=== PATIENT | male | born 1935 | race Caucasian/White ===

== ENCOUNTER 2024-11-18 10:57 | Emergency (ER) | payer OTHER, SELFPAY ==
[2024-11-18] VITALS (7 sets, daily range): BP systolic 105–139; BP diastolic 46–85
--- NOTE | 2024-11-18 11:47 | ED.GENMED ---
History of Present Illness
General
Chief Complaint: Fall
Source: patient and family
Time Seen by Provider: 11/18/24 11:31
History of Present Illness
History of Present Illness:
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
he had an accidental trip and fall onto a concrete surface yesterday afternoon resulting in continuous left hip pain that is gradually worsened to the point where patient notes he is having significant difficulty ambulating. Patient does take
Eliquis due to his history of DVT/PE and reports that while he is compliant with this he decided to skip yesterday evening and this morning. Patient denies any headache, LOC, vomiting or visual changes. His only concern right now is moderate
lateral left hip pain that worsens with any attempted movement.
Past History
Past History
ED Past Medical History: Asthma, CAD, COPD, HTN, Hypercholesterolemia, Other (Sleep apnea) and Other (DVT/PE)
ED Past Surgical History: Cardiac, Cholecystectomy, Orthopedic, Tonsilectomy and Urological
Social History
Tobacco: Non-smoker
Alcohol: None
Drug: None
Personal:
Living: with family
Employment: Retired
Review of Systems
Review of Systems
All Other Systems: ROS reviewed and negative except as documented in HPI and ROS
Phy Exam
Physical Exam
Physical Exam:
GENERAL: Alert , in no apparent distress
HEAD: NCAT
EYE: clear conjunctiva
NECK: Supple, no midline ttp
ENT: o/p clr, mmm.
CARDIAC: Regular rate and rhythm .
LUNGS: Clear breath sounds bilaterally, no acute respiratory distress, no wheezes/rales/rhonchi
ABDOMEN: Soft, without focal tenderness, no r/g, no cvat
NEUROLOGICAL: Alert and oriented
SKIN: Warm and dry, skin intact.
MUSCULOSKELETAL: LLE: no obvious deformity/malrotation. Pain with attempted ROM at the left hip/pelvis. No pain with palpation over mid-distal femur/knee/ankle/foot, NVI. Warm and well perfused
PSYCH: Normal and appropriate interaction.
Scores
Heart Failure Risk
Heart Failure Risk Score: Not Applicable
Heart Score for Chest Pain Patients
STEMI patient?: Not applicable
Withdrawal Assessment of Alcohol
Withdrawal Assessment Completed?: Not applicable
Course
Orders/Labs/Results
Orders:
Orders
11/18/24 11:09
Hip, Left 2-3 Views [CR Hip - LT w/wo Pel 2-3 Vw*] Urgent
Comment:
Reason For Exam: pain
Include a pelvis x-ray?: Yes
11/18/24 11:31
CT Cervical Spine W/o Iv Contr Urgent
Comment:
Reason For Exam: fall, eliquis
CT Head W/o Iv Contrast Urgent
Comment:
Reason For Exam: fall, eluiqus
11/18/24 12:32
Basic Metabolic Panel Urgent
Complete Blood Count/With Diff Urgent
PTT Urgent
Prothrombin Time Urgent
11/18/24 13:12
Piperacillin/Tazo 3.375 Gram [Zosyn] 3.375 gram in 50 ml IV NOW
11/18/24 13:[address] Pelvis W/o Iv Contrast Urgent
Comment:
Reason For Exam: concern for left hip/prox femur fracture
Abnormal Lab Results
11/18/24
12:32
MCH 26.5 L pg
(27.0-31.0)
MCHC 31.9 L g/dL
(33.0-37.0)
RDW 16.5 H %
(11.5-14.5)
Absolute Monos (auto) 0.7 H 10^3/uL
(0.1-0.6)
Monocytes % 9.9 H %
(1.7-9.3)
PT 16.5 H Sec
(11.4-14.6)
APTT 42.4 H Sec
(23.4-35.0)
BUN 21 H mg/dl
(9-20)
Creatinine 1.4 H mg/dL
(0.7-1.3)
11/18/24 12:32
11/18/24 12:32
Vital Signs
Initial and Last Documented VS:
Initial Vital Signs
Temp Pulse Resp BP Pulse Ox
98.6 F 84 16 122/66 98
11/18/24 11:07 11/18/24 11:07 11/18/24 11:07 11/18/24 11:07 11/18/24 11:07
Last Documented Vital Signs
Temp Pulse Resp BP Pulse Ox
98.6 F 84 16 139/79 97
11/18/24 11:07 11/18/24 11:07 11/18/24 11:07 11/18/24 17:19 11/18/24 17:30
MDM/Problems Addressed
Differential Diagnosis Includes:
Hip/femur fracture, pelvic fracture, contusion, traumatic bursitis, intracranial bleeding, concussion
MDM/Problems Addressed:
89-year-old male presenting the ER for evaluation after a slip and fall yesterday afternoon, worsening pain throughout the day and evening and into this morning with inability to ambulate secondary to the pain. Patient is hemodynamically stable and
in no acute distress. He states he took an dose of oxycodone around 4 AM and is declining anything further for pain. X-ray of the left hip ordered. Will also order CT of the head and cervical spine due to patient's anticoagulated status and risk
for distracting injury. Labs ordered. Disposition pending.
Chronic conditions affecting care: Arrhythmia
*Radiology
Radiology exam reviewed: preliminary read by ED provider and radiology read reviewed
*Pulse Oximetry
Patient hypoxic: no
*Critical Care Note
Total Time (30-74mins, 75-104mins- exclusive of procedures): Not Applicable
Patient Management
Escalation/DeEscalation of care consider admission/obs:
Patient's x-ray without evidence for acute fracture as read by radiology. CT of the head and cervical spine also without any acute pathologies. Given the patient's pain with ambulating as well as movement I did order a CT scan of the hip/pelvis to
further evaluate for possibility of being missed on x-ray. Patient and family updated on treatment plan and are in agreement with this. Patient continues to decline anything for pain.
Patient CT scan without evidence for fracture. Continues to decline admit/PT/OT or want for SNF/Rehab. Family feels comfortable taking patient home. Aware of return precautions
ED Attending Note
-
Portions of this chart may have been created with voice recognition software.� Occasional wrong word or��sound alike� substitutions may have occurred due to the inherent limitations of voice recognition software.
Discharge Plan
Departure
Patient Disposition: Home (Routine Discharge)
Date of Disposition: 11/18/24
Time of Disposition: 17:27
Patient with high blood pressure during this ER visit?: No
Discharge Problem:
Hip pain
Instructions: Preventing falls in adults, Musculoskeletal Pain
Prescriptions:
New
oxycodone 5 mg tablet
5 mg PO BID PRN (Reason: Pain) Qty: 10 0RF
docusate sodium [Colace] 100 mg capsule
100 mg PO BID Qty: 15 0RF
No Action
losartan 25 MG tablet
50 mg PO BID
tiotropium bromide [Spiriva Respimat] 1 PUFF mist
2 puff inhalation DAILY
carvedilol 6.25 MG tablet
6.25 mg PO BID
furosemide 40 MG tablet
20 - 40 mg PO PRN PRN (Reason: swelling)
Patient Comments:
months ago pre patient.
rosuvastatin 20 MG tablet
20 mg PO QPM
mometasone-formoterol [Dulera] 1 PUFF HFA aerosol inhaler
1 puff inhalation BID
polyethylene glycol 3350 17 GRAMS powder in packet
17 grams PO DAILYPRN PRN (Reason: constipation) Qty: 1 0RF
Patient Comments:
pt states he took months ago
acetaminophen [Tylenol Extra Strength] 500 MG tablet
1,000 mg PO Q6HPRN PRN (Reason: mild pain) Qty: 1 0RF
omeprazole 40 MG capsule,delayed release(DR/EC)
40 mg PO DAILY
albuterol sulfate 18 GM HFA aerosol inhaler
2 puff IH PRN PRN (Reason: sob)
Patient Comments:
pt states he used it months ago
cholecalciferol (vitamin D3) 2,000 UNITS tablet
2,000 units PO Q48H
Eliquis 2.5 MG tablet
2.5 mg PO BID Qty: 0 0RF
oxycodone 5 MG tablet
5 mg PO Q4HPRN PRN (Reason: breakthrough/severe pain) Qty: 10 0RF
lansoprazole 30 MG tablet,disintegrat, delay rel
30 mg PO DAILY Qty: 30 0RF
amlodipine-valsartan 5-160 mg Tablet
1 tab PO DAILY
Referrals:
Suleiman Reilly DO [Family Provider] -
Interventions
Interventions:
*Risk Screen - Suicide Last Done: 11/18/24 11:07
*General Assessment Last Done: 11/18/24 17:45
*Neglect/Abuse Screening Last Done: 11/18/24 11:07
ED- Fall Risk Assessment Last Done: 11/18/24 11:40
*ED COVID-19 Vaccine History Last Done: 11/18/24 11:39
*Nursing Disposition Last Done: 11/18/24 17:45
ED-Musculoskeletal Assessment Last Done: 11/18/24 11:40
ED- Neurological Assessment Last Done: 11/18/24 11:40
ED-Skin Assessment Last Done: 11/18/24 12:35
Discharge Date and Time
Discharge Date/Time: 11/18/24 17:45
Print Language: [place]
[2024-11-18 12:41] LABS: % Basophils 0.4 % (0-2); % Eosinophils 1.5 % (0-6); % Immature Granulocytes 0.4 % (0-0.5); % Lymphocytes 24.1 % (20.5-51.1); % Monocytes 9.9 % (1.7-9.3); % Neutrophils 63.7 % (42.2-75.2); Absolute Eosinophils 0.1 10^3/uL (0-0.7); Absolute Lymphocytes 1.6 10^3/uL (1.2-3.4); Absolute Monocytes 0.7 10^3/uL (0.1-0.6); Absolute Neutrophils 4.3 10^3/uL (1.4-6.5); Hemoglobin 13.4 g/dL (13.0-18.0); Mean Corp Hgb Conc. 31.9 g/dL (33.0-37.0); Mean Corpuscular Hgb 26.5 pg (27.0-31.0); Mean Corpuscular Volume 83.2 fL (80.0-94.0); Mean Platelet Volume 9.3 fL (7.4-10.4); Nucleated Red Blood Cells % 0 % (-); Platelet Count 216 10^3/uL (130-400); Red Blood Cell Count 5.05 10^6/uL (4.70-6.10); Red Cell Dist. Width 16.5 % (11.5-14.5); White Blood Cell Count 6.7 10^3/uL (4.8-10.8)
[2024-11-18 12:49] LABS: INR 1.31; PT 16.5 Sec (11.4-14.6)
[2024-11-18 12:50] LABS: APTT 42.4 Sec (23.4-35.0)
[2024-11-18 13:03] LABS: Blood Urea Nitrogen 21 mg/dl (9-20); Carbon Dioxide 26 mmol/L (22-30); Chloride 105 mmol/L (98-107); Glucose 98 mg/dl (70-99); Potassium 4.2 mmol/L (3.5-5.1); Sodium 138 mmol/L (135-145); eGFR 48.04
[2024-11-18] MEDS: ZOSYN 50 IV (13:33)
== END 2024-11-18 17:45 | disposition home or self-care (01) ==
LOC: EMR 10:57
PROVIDERS: Physician Assistant Medical; EMERGENCY PHYSICIAN Emergency Medicine; FAMILY PHYSICIAN Family Medicine Sports Medicine
DX: M25.552 Pain in left hip (principal); R26.2 Difficulty in walking, not elsewhere classified; W01.0XXA Fall on same level from slipping, tripping and stumbling without subsequent striking against object, initial encounter; J44.89 Other specified chronic obstructive pulmonary disease; I12.9 Hypertensive chronic kidney disease with stage 1 through stage 4 chronic kidney disease, or unspecified chronic kidney disease; N18.30 Chronic kidney disease, stage 3 unspecified; I25.10 Atherosclerotic heart disease of native coronary artery without angina pectoris; E78.00 Pure hypercholesterolemia, unspecified; G47.30 Sleep apnea, unspecified; I25.2 Old myocardial infarction; Z86.718 Personal history of other venous thrombosis and embolism; Z86.711 Personal history of pulmonary embolism; Z79.01 Long term (current) use of anticoagulants; Z90.49 Acquired absence of other specified parts of digestive tract; Z88.1 Allergy status to other antibiotic agents; Z88.3 Allergy status to other anti-infective agents; Z88.8 Allergy status to other drugs, medicaments and biological substances
CPT/HCPCS: 99285; 96365; 70450; 72125; 72192; 73502; 80048; 85025; 85610; 85730